=== PATIENT | female | born 1950 | race Caucasian/White ===

== ENCOUNTER 2018-08-19 10:53 | Emergency (ER) | payer MEDICARE, BC ==
[2018-08-19] MEDS: ONDANSETRON (ODT) 4 MG TAB ODT (13:03)
== END 2018-08-19 14:22 | disposition home or self-care (01) ==
LOC: FTE 10:53
DX: S09.90XA Unspecified injury of head, initial encounter (principal); S89.92XA Unspecified injury of left lower leg, initial encounter; R51 Headache; R40.2142 Coma scale, eyes open, spontaneous, at arrival to emergency department; R40.2252 Coma scale, best verbal response, oriented, at arrival to emergency department; R40.2362 Coma scale, best motor response, obeys commands, at arrival to emergency department; W22.8XXA Striking against or struck by other objects, initial encounter; Y92.481 Parking lot as the place of occurrence of the external cause
CPT/HCPCS: 70450; 73562; 99284-25